=== PATIENT | female | born 1965 | race Caucasian/White ===

== ENCOUNTER 2017-06-03 07:40 | Day surgery (SDC) | payer MEDICARE, MEDICAID ==
[2017-05-31 10:22] VITALS: BMI 54.7
[~2017-06-03 07:40] MED LIST: FLU VACC QS2017-18 36 mo. & older 0.5 ML SYRINGE IM ONE
[2017-06-03 09:01] VITALS: BP 148/100; TEMP 98.2
[2017-06-03] MEDS ORDERED: HYDROcodone/Acetaminophen 5/325 mg Tablet ONE (10:16)
--- NOTE | 2017-06-03 12:58 | CT ---
CT LUMBAR SPINE WITH CONTRAST: (CT LUMBAR MYELOGRAM) HISTORY: A 52-year-old female with bilateral lumbar radiculopathy, left worse than right. FINDINGS: The T12 ribs are hypoplastic. Inferior to that, there are five standard lumbar type vertebrae. The vertebral body heights are maintained. Alignment is normal. There is no spondylolysis. There are dorsal column stimulator leads entering the spinal canal at the T11-T12 level and ascending along t he posterior epidural space (distal tip not included in the images). T11-T12: No additional findings. Moderate disk space narrowing. Minimal disk bulge. No central o r neural foraminal stenosis. T12-L1: Normal. L1-L2: Normal. The conus medullaris terminates at upper L2. L2-L3: Normal. L3-L4: Mild to moderate disk space narrowing. Diffuse prominent disk bulge, plus broad-based centr al and bilateral paracentral disk herniation. Together, these result in at least moderate central a elias canal stenosis, and moderate-severe thecal sac stenosis. There is also moderate right neural foraminal stenosis and moderate to severe left neural foraminal stenosis. This central spinal canal stenosis is responsible for the tortuous appearance of the cauda equina at all levels superior to t his. No high grade degenerative facet changes. L4-L5: Little or no disk space narrowing. Slight degenerative retrolisthesis of L4 on L5. No high grade degenerative facet changes. Mild diffuse disk bulge. Mild central spinal canal stenosis. M oderate to severe bilateral neural foraminal stenosis, right worse than left. L5-S1: Severe disk space narrowing. Degenerative retrolisthesis of L5 on S1. Vacuum disk phenomen on. There is a left paracentral/lateral focal moderately large disk-osteophyte complex, which displ aces the left S1 nerve root as it exits the thecal sac and enters the epidural space. There is bila teral moderate neural foraminal stenosis, and mild central spinal canal stenosis due to the focal di sk-osteophyte complex. No high grade degenerative facet changes. IMPRESSION: 1. Combination of disk herniation and disk bulge at L3-L4, causing moderate to severe thecal sac st enosis. 2. Significant bilateral neural foraminal stenosis at L3-L4 and L4-L5. 3. At L5-S1, there is a moderately large left paracentral-lateral focal disk-osteophyte complex lisseth t impinges on the left S1 nerve root. 4. Severe degenerative disk changes at L5-S1. 5. Dorsal column stimulator leads ascending the thoracic spine. POS: [facility]
[2017-06-03] MEDS ORDERED: Iopamidol-M 300 61% 15 ML VIAL ONE (15:07)
--- NOTE | 2017-06-03 15:46 | RAD ---
MYELOGRAM LUMBAR: 06/03/2017 HISTORY: A 52-year-old female with chronic low back pain and bilateral lumbar radiculopathy, left worse than right. TECHNIQUE: Signed informed consent obtained. The patient was placed in the prone CAROL position on the fluorosco py table. The skin of the lower back was prepped and draped in the usual sterile fashion. A 25 gau ge needle was used to apply buffered Lidocaine superficially. A long, 7 inch, 22 gauge spinal needl e was advanced under brief, intermittent fluoroscopic guidance, into the spinal canal and thecal sac , from a right paramedian approach. Upon brisk return of CSF, a total of 9 mL of Isovue-M 200 was i njected intrathecally. The needle was removed. The patient tolerated the procedure well. No compl ications. FINDINGS: A dorsal column stimulator lead enters the lower thoracic spine and ascends out of the field of view . There are five lumbar type vertebrae. The vertebral body heights are maintained. Alignment is n ormal. Mild disk space narrowing at L3-L4 and at L4-L5. Severe disk space narrowing at L5-S1 with vacuum disk phenomenon. No major spondylolisthesis. Subsequent images demonstrate the spinal needl e overlying the L2-L3 level. The lateral view demonstrates the distal tip within the thecal sac, be fore and after contrast injection. Images obtained during and after contrast injection demonstrate a good, intrathecal location of the contrast material, outlining the cauda equina. There is narrowi ng of the spinal canal at L3-L4. IMPRESSION: 1. Successful lumbar myelogram. 2. Central spinal canal stenosis at L3-L4. 3. Advanced degenerative disk disease at L5-S1. 4. Dorsal column stimulators. 5. See separate report of the CT myelogram. POS: [facility]
== END 2017-06-03 10:55 | disposition home or self-care (01) ==
LOC: RAD 07:40
PROVIDERS: ATTEND Neurological Surgery
PROC: B01B1ZZ Fluoroscopy of Spinal Cord using Low Osmolar Contrast (ICD-10-PCS; principal; 2017-06-03)
PROC: B02B1ZZ Computerized Tomography (CT Scan) of Spinal Cord using Low Osmolar Contrast (ICD-10-PCS; 2017-06-03)
DX: M54.16 Radiculopathy, lumbar region (principal); M19.90 Unspecified osteoarthritis, unspecified site; F17.200 Nicotine dependence, unspecified, uncomplicated; Z79.899 Other long term (current) drug therapy; Z90.49 Acquired absence of other specified parts of digestive tract; Z98.890 Other specified postprocedural states; Z80.0 Family history of malignant neoplasm of digestive organs; Z80.1 Family history of malignant neoplasm of trachea, bronchus and lung
CPT/HCPCS: 62304; 72132

== ENCOUNTER 2017-07-12 07:44 | Day surgery (SDC) | payer MEDICARE, MEDICAID ==
[2017-07-11 10:10] VITALS: BMI 48.6
--- NOTE | 2017-07-11 23:09 | HP ---
HISTORY OF PRESENT ILLNESS: Ms. Santos is a 52-year-old woman who presents for evaluation of chroni c low back pain as well as associated right lower extremity L5 for potentially S1 radiculopathy. She has had this for several years and this has been worsening over the last year. She has been a patie nt of Dr. Clayton at [facility] and has received epidural steroid injections that did provide her substantial relief, but just for short periods of time. She has had significant low back pain an d she did have a dorsal column stimulator placed as well; however, she does not feel that it helps ve ry much at all. She has had a recent CT myelogram at [place] that reveals disk osteophyte complex at left L5, which would account for the S1 radiculopathy that she has been experiencing. She also h as moderate to severe lumbar stenosis at levels above, most prominently at L3-L4 and at L4-L5 as well . At this point, she is hoping to move forward with some type of surgical intervention if possible. PAST MEDICAL HISTORY: Significant for non-Hodgkin's lymphoma, borderline diabetes, depression, fibro myalgia and obesity. PAST SURGICAL HISTORY: Cholecystectomy, previous back surgery, tumor resection and dorsal column sti mulator placement. CURRENT MEDICATIONS: Effexor, atorvastatin, metformin, [place], tizanidine, vitamin D, vitamin B12. ALLERGIES: No known drug allergies. PHYSICAL EXAMINATION: GENERAL: The patient is alert and oriented x3. NEUROLOGIC: Gait is antalgic. Lower extremity motor exam reveals full strength bilaterally in all m uscle groups at lower extremities. Straight leg raise is positive on the left. ASSESSMENT: Lumbar radiculopathy. PLAN: Dr. Daniel met with the patient, reviewed imaging and ultimately advocated for an L3-L4 decompr ession. He explained to the patient the risks, benefits, and alternatives to the procedure. The pat ient expressed understanding and would like to move forward with surgery as discussed. I do believe the patient is mentally competent and capable of making medical decisions for himself and we will mov e forward with surgery as planned. Xavi Sarmiento PA-C dictating for Dr. Daniel.
[2017-07-12] MEDS ORDERED: CEFAZOLIN/Water 2 GM/20 ML SYRINGE ONE ×2 (08:24→15:01)
[2017-07-12 08:35] LABS: #Basophils 0.1 thou/uL (0.0-0.2); #Eosinphils 0.3 thou/uL (0.0-0.7); #Lymphocytes 2.1 thou/uL (1.20-3.40); #Neutrophils 6.9 thou/uL (1.40-6.50); %Basophils 0.5 % (0.0-1.0); %Eosinophils 2.4 % (0.0-10.0); %Lymphocytes 20.4 % (21.0-51.0); %Monocytes 10.1 % (0.0-10.0); Hematocrit 46.4 % (36.0-47.0); Red Blood Cell (RBC) Count 4.82 mill/uL (4.20-5.40); White Blood Cell (WBC) Count 10.3 thou/uL (4.8-10.8)
[2017-07-12 09:06] LABS: BUN (Urea Nitrogen) 11 mg/dL (9.8-20.1); Calc. Creatinine Clearance 211 mL/min (70-130); Estimated GFR-MDRD 87
[2017-07-12 09:10] LABS: Anion Gap 16 mmol/L (10-20); Calcium 9.5 mg/dL (7.8-10.44); Carbon Dioxide 18 mmol/L (22-29); Chloride 109 mmol/L (98-107)
[2017-07-12] MEDS ORDERED: Bupivacaine/Epinephrine 0.25% 30 ML VIAL ONE (10:48)
[2017-07-12] MEDS ORDERED: Thrombin 5000 UNITS/5 ML VIAL ONE (10:48)
[2017-07-12] MEDS ORDERED: Midazolam HCl 2 mg/2 ml Vial ONE (10:55)
[2017-07-12] MEDS ORDERED: Fentanyl 250 MCG/5 ML VIAL ONE (10:55)
[2017-07-12] MEDS ORDERED: Fentanyl 100 MCG/2 ML VIAL ONE (13:26)
--- NOTE | 2017-07-12 13:55 | OP ---
DATE OF PROCEDURE: 07/12/2017 SURGEON: Toni Daniel M.D. SUPERVISOR SCREEN MAKING: Gio Sarmiento PA-C. INDICATION: Pain. DIAGNOSIS: Lumbar stenosis. PROCEDURE: L3 through thoracolumbar decompression. ANESTHESIA: General. TECHNIQUE: The patient was brought into the operating room and placed under general anesthesia. She was flipped from a supine to a prone position on the operating room table. A linear incision was pl anned over the L3-L4 segment. After prepping and draping and after an appropriate operative pause, t he incision was created. The soft tissues were swept away from midline. We had used deep retractors as the patient was morbidly obese. She also had scar tissue present and therefore surgical modifier 22 will be applied. After confirming the appropriate level with the AP, C-arm image, Adson rongeur, high-speed cutting drill bit and 2 and 3 and 4-mm Kerrisons were used to remove most of L4 and under half of L3. There was some substantial amount of epidural lipomatosis present which was not evident on the CT myelogram. This was carefully removed. In the end, the thecal sac at this segment was we ll decompressed. The wound was irrigated. Hemostasis was maintained throughout. The wound was then closed in anatomic layers and a pressure dressing was applied. There were no known procedural compl ications.
[2017-07-12] MEDS ORDERED: Acetaminophen/Codeine 30-300mg Tablet ONE (14:33)
[2017-07-12] MEDS ORDERED: Sodium Chloride 0.9% 10 ML ONE (14:57)
[2017-07-12] MEDS ORDERED: PHENYLEPHRINE-NS 100 MCG/ML 10 ML SYRINGE ONE (15:16)
[2017-07-12] MEDS ORDERED: Ondansetron HCl/PF 4 MG/2 ML Vial ONE (15:16)
[2017-07-12] MEDS ORDERED: Propofol 200 MG/20 ML VIAL ONE (15:16)
[2017-07-12] MEDS ORDERED: ePHEDrine/0.9% NaCl/PF SYRINGE 50 mg/10 ml ONE (15:16)
[2017-07-12] MEDS ORDERED: Lidocaine 1% PF 5 ML VIAL ONE (15:16)
[2017-07-12] MEDS ORDERED: Glycopyrrolate 0.2 MG/ML 5 ML SYRINGE ONE (15:16)
== END 2017-07-12 15:30 | disposition home or self-care (01) ==
LOC: SDC 07:44
PROVIDERS: ATTEND Neurological Surgery
PROC: 00NY0ZZ Release Lumbar Spinal Cord, Open Approach (ICD-10-PCS; principal; 2017-07-12)
DX: M48.061 Spinal stenosis, lumbar region without neurogenic claudication (principal); M54.16 Radiculopathy, lumbar region; C85.90 Non-Hodgkin lymphoma, unspecified, unspecified site; R73.03 Prediabetes; M79.7 Fibromyalgia; F32.9 Major depressive disorder, single episode, unspecified; E66.9 Obesity, unspecified; Z68.42 Body mass index [BMI] 45.0-49.9, adult; Z79.84 Long term (current) use of oral hypoglycemic drugs; Z79.899 Other long term (current) drug therapy; Z90.49 Acquired absence of other specified parts of digestive tract; Z98.890 Other specified postprocedural states
CPT/HCPCS: 36415; 76001; 80048; 85025; 93005; 93010; 96374; J2001; J2250; J2270; J2405; J2704; J3010